=== PATIENT | male | born 2000 | race Caucasian/White ===

== ENCOUNTER 2024-06-11 06:23 | Day surgery (SDC) | payer BC ==
[2024-06-10 12:39] VITALS: BMI 31.4
[2024-06-11] MEDS ORDERED: Ferric Subsulfate 8 ML TOPICAL SOLN ONE (06:46)
[2024-06-11] MEDS ORDERED: fentaNYL 50 mcg/mL 1 mL Vial ONE ×2 (07:54→09:40)
[2024-06-11] MEDS ORDERED: PROPOFOL 20 ML ONE ×2 (07:54→09:11)
[2024-06-11] MEDS ORDERED: SUGAMMADEX SODIUM 200 MG/2 ML VIAL ONE (07:55)
[2024-06-11] MEDS ORDERED: Rocuronium Bromide 10 MG/ML (10ML VIAL) ONE (07:55)
[2024-06-11] MEDS ORDERED: Dexamethasone 4 mg/ml Vial ONE (07:55)
[2024-06-11] MEDS ORDERED: Dexmedetomidine 200 MCG/2 ML VIAL ONE (08:01)
[2024-06-11] MEDS ORDERED: Sodium Chloride 0.9% 10 ML ONE (08:02)
[2024-06-11] MEDS ORDERED: Famotidine/PF 20 mg/2ml Vial ONE (08:29)
[2024-06-11] MEDS ORDERED: Midazolam HCl 2 mg/2 ml Vial ONE (08:29)
[2024-06-11] MEDS ORDERED: Lidocaine 1% PF 5 ML VIAL ONE (08:52)
[2024-06-11] MEDS ORDERED: Hydrocodone-Acetamin 15 ML UDCUP ONE (10:40)
== END 2024-06-11 11:00 | disposition home or self-care (01) ==
LOC: CSHSDC 06:23
PROVIDERS: ATTEND Specialist
PROC: 0CTPXZZ Resection of Tonsils, External Approach (ICD-10-PCS; principal; 2024-06-11)
DX: J35.1 Hypertrophy of tonsils (principal); K21.9 Gastro-esophageal reflux disease without esophagitis; Z79.899 Other long term (current) drug therapy
CPT/HCPCS: 88304; J1100; J2250; J2704; J3010; J3490

== ENCOUNTER 2024-06-14 02:22 | Emergency (ER) | payer BC | END 2024-06-14 03:51 | disposition home or self-care (01) | LOC: CSHERS 02:22 | DX: J95.830 Postprocedural hemorrhage of a respiratory system organ or structure following a respiratory system procedure (principal) | CPT/HCPCS: 99283 ==

== ENCOUNTER 2024-06-25 17:37 | Emergency (ER) | payer BC ==
[2024-06-25] MEDS ORDERED: Famotidine 20 MG TAB ONE (18:26)
[2024-06-25] MEDS ORDERED: Dexamethasone 10 MG/ML VIAL ONE (18:26)
[2024-06-25] MEDS ORDERED: diphenhydrAMINE 25 MG CAP ONE (18:26)
[2024-06-25] MEDS ORDERED: Baclofen 10 MG TAB PO SCH (19:45)
== END 2024-06-25 19:53 | disposition home or self-care (01) ==
LOC: CSHERS 17:37
DX: M79.89 Other specified soft tissue disorders (principal); T37.8X5A Adverse effect of other specified systemic anti-infectives and antiparasitics, initial encounter
CPT/HCPCS: 96372; 99284; J1100